=== PATIENT | female | born 1930 | race Caucasian/White ===

== ENCOUNTER 2016-11-06 04:40 | Emergency (ER) | payer MEDICARE ==
--- NOTE | ~2016-11-06 | CT71 ---
[facility] A Service of [facility] & [facility] RADIOLOGY TEXT RESULTS PATIENT: GINNY FROST LOCATION: [facility] : 32 UNIT #: [id number] AGE: [address]: Govind Briones MD SEX: F ORDER DR: [id number] [facility] [address] [place], [place] [address] [id number] E MR#: [id number] #: [id number] NAME: GINNY FROST : 1930 SEX: F STUDY DATE/TIME: 11/06/2016 11:27 UNIT: [facility] ROOM: STUDY DESCRIPTION: CT Head Wo Contrast Attending Physician: Govind Briones M.D. Ordering Physician: Govind Briones M.D. Primary Care Physician: Susan Ponce M.D. MEDICAL IMAGING REPORT This report is preliminary unless electronic signature is present EXAM CT head without contrast dated 11/06/[address] head without contrast dated 11/06/2016 0508 hours. HISTORY Patient fell at home with laceration to the back of the head today. Question loss of consciousness. FINDINGS CT of the head was obtained without contrast in the axial plane as per the protocol. This CT examination was performed with one or more of the following radiation dose reduction techniques: automatic exposure control, adjustment of mA and/or kV according to patient size, and iterative reconstruction. Biparietal scalp swelling and hematoma is noted, left worse than right. Associated surgical skin virgilio are seen. No underlying fracture. No acute intracranial hemorrhage, space occupying mass, mass effect or midline shift is seen. Mild ill-defined hypodensity is noted in the periventricular white matter, nonspecific. No acute intracranial hemorrhage, hydrocephalus, space occupying mass or midline shift. Nasal septum is deviated to the right. There is mild paranasal sinus mucosal thickening. Status post bilateral cataract surgery with aphakia. Imaged ocular structures and bony orbits appear to be relatively intact. IMPRESSION 1. No demonstrable acute intracranial hemorrhage, hydrocephalus or space occupying mass. 2. Scattered hypodensities are noted in the periventricular white matter, likely related to mild chronic microvascular ischemic change based on age and statistics. Nonspecific. 3. Biparietal scalp swelling and hematoma is noted with surgical skin STS. [facility] A Service of [facility] & [facility] RADIOLOGY TEXT RESULTS PATIENT: GINNY FROST LOCATION: [facility] : 31 UNIT #: [id number] AGE: [address]: Govind Briones MD SEX: F ORDER DR: virgilio. No underlying fracture. Dictated by... Kenneth Pinto M.D. THIS IS AN ELECTRONICALLY VERIFIED REPORT Kenneth Pinto M.D. at 11/07/2016 6:05 PM CPR/gurjit TD: 11/06/2016 12:21 JOB #: [id number] MEDICAL IMAGING REPORT Page 1 of 1 COPY
--- NOTE | ~2016-11-06 | CT71 ---
[facility] A Service of [facility] RADIOLOGY TEXT RESULTS PATIENT: GINNY FROST LOCATION: [facility] : 31 UNIT #: [id number] AGE: [address]: Govind Briones MD SEX: F ORDER DR: [id number] [facility] [place], [place] [address] [id number] E MR#: [id number] #: [id number] NAME: GINNY FROST : 1930 SEX: F STUDY DATE/TIME: 11/06/2016 5:08 UNIT: [facility] ROOM: STUDY DESCRIPTION: CT Head Wo Contrast Attending Physician: Vasile Garcia M.D. Ordering Physician: Ed Doctor [id number] [facility] Primary Care Physician: Susan Ponce M.D. MEDICAL IMAGING REPORT This report is preliminary unless electronic signature is present EXAM CT scan of the head without contrast INDICATION Fell at home with laceration to back of head and bleeding from back of head. Evaluate for intracranial bleeding. FINDINGS Unenhanced images were obtained through the brain. This CT examination was performed with one or more of the following radiation dose reduction techniques: automatic exposure control, adjustment of mA and/or kV according to patient size, and iterative reconstruction. There is mild generalized atrophy. There are no masses, extraaxial fluid collections or hemorrhage. The skull is intact. IMPRESSION Mild atrophy, otherwise normal. Dictated by... Bryan Garcia M.D. THIS IS AN ELECTRONICALLY VERIFIED REPORT Bryan Garcia M.D. at 11/06/2016 1:39 PM YEMI/gurjit TD: 11/06/2016 06:30 JOB #: [id number] MEDICAL IMAGING REPORT [facility] A Service [facility] RADIOLOGY TEXT RESULTS PATIENT: GINNY FROST LOCATION: [facility] : 31 UNIT #: [id number] AGE: [address]: Govind Briones MD SEX: F ORDER DR: Page 1 of 1 COPY
[~2016-11-06 04:40] MED LIST: ACTONEL PO; ALBUTEROL 0.5ML INH; AMLODIPINE BESYL5 MG PO; ASPIRIN PO; BETAPACE AF120 MG PO; BETAPACE PO; BROVANA15 MCG/2 M INH; CARDURA PO; DIOVAN PO; DULOXETINE HCL60 MG PO; HYDROCODONE/APA1 T16 PO; JANTOVEN1 MG PO; KCL PO; LASIX20 MG PO; LEVOTHYROXINE50 MC1 PO; LIPITOR PO; LOW DOSE ASPIRI81 M1 PO; MAG-OX 400400 MG PO; MELATONIN5 M1 PO; PRILOSEC PO; PRINCIPEN500 M1 PO; PULMICORT0.25 MG/2 INH; RANITIDINE HCL300 M1 PO; REQUIP1 MG PO; REQUIP2 MG PO; SYNTHROID PO; VITAMIN D 4001 UDTAB PO; VITAMIN D-32000 UNI2 PO; ZANTAC PO
[2016-11-06 05:48] LABS: BASOPHIL% 0.8 % (0-2.5); EOSINOPHIL# 0.1 X10e3 (0-0.7); EOSINOPHIL% 2.8 % (0.0-7.0); HEMATOCRIT 27.9 % (35.0-45.0); HEMOGLOBIN 8.9 gm/dL (12.0-16.0); LYMPHOCYTE# 1.2 X10e3 (1.0-3.5); LYMPHOCYTE% 23.7 % (17.0-45.0); MEAN CELL VOLUME 92.4 FL (83-96); MEAN CORPUSCULAR HEMOGLOBIN 29.4 PG (28-34); MEAN CORPUSCULAR HGB CONC 31.8 g/dL (30-36); MEAN PLATELET VOLUME 7.1 FL (6.5-11.5); MONOCYTE# 0.6 X10e3 (0-1.0); MONOCYTE% 11.3 % (3.0-12.0); NEUTROPHIL# 3.1 X10e3 (1.5-7.1); NEUTROPHIL% 61.4 % (40-75); PLATELET COUNT 165 X10e3 (140-420); RED BLOOD COUNT 3.02 X10e (3.90-5.30); RED CELL DISTRIBUTION WIDTH 15.5 % (11.0-15.5); WHITE BLOOD COUNT 5.1 X10e3 (4.0-10.5)
[2016-11-06 05:50] LABS: DIFF IND NO
[2016-11-06 06:03] LABS: INR 3.9; PARTIAL THROMBOPLASTIN TIME 39.2 SECONDS (23.5-31.3)
[2016-11-06 06:05] LABS: PROTHROMBIN TIME (PATIENT) 43.5 SECONDS (9.6-11.5)
[2016-11-06 06:23] LABS: BUN/CREATININE RATIO 20.55; CALCIUM SERUM 8.5 mg/dL (8.4-10.2); CREATININE SERUM 1.8 mg/dL (0.6-1.4); GLOM FILT RATE Estimated 25.2 mL/min (>60)
[2016-11-06 11:21] LABS: HEMATOCRIT 24.3 % (35.0-45.0); HEMOGLOBIN 7.7 gm/dL (12.0-16.0); MEAN CELL VOLUME 91.6 FL (83-96); MEAN CORPUSCULAR HGB CONC 31.7 g/dL (30-36); MEAN PLATELET VOLUME 6.8 FL (6.5-11.5); RED BLOOD COUNT 2.66 X10e (3.90-5.30); RED CELL DISTRIBUTION WIDTH 15.5 % (11.0-15.5)
== END 2016-11-06 14:57 | disposition home or self-care (01) ==
LOC: CED 04:40
PROVIDERS: Emergency Medicine
DX: S01.01XA Laceration without foreign body of scalp, initial encounter (principal); D68.9 Coagulation defect, unspecified; I10 Essential (primary) hypertension; Z88.2 Allergy status to sulfonamides; Z88.8 Allergy status to other drugs, medicaments and biological substances; Z79.899 Other long term (current) drug therapy; Z79.01 Long term (current) use of anticoagulants; Z79.82 Long term (current) use of aspirin; Z23 Encounter for immunization; X58.XXXA Exposure to other specified factors, initial encounter; Y92.009 Unspecified place in unspecified non-institutional (private) residence as the place of occurrence of the external cause
CPT/HCPCS: 12001; 36415; 70450; 80048; 85025; 85027; 85610; 85730; 90471; 90715; 99284